=== PATIENT | male | born 1995 | race African-American/Black ===

== ENCOUNTER 2021-03-15 11:16 | Emergency (ER) | payer SELFPAY ==
[~2021-03-15] VITALS: Ht 180.3 cm; Wt 90.7 kg
[2021-03-15 11:26] VITALS: BP 116/86
--- NOTE | 2021-03-15 11:29 | NUR ---
PT TO WAIT IN LOBBY.
--- NOTE | 2021-03-15 11:42 | NUR ---
DR. MIRANDA WITH PT IN [facility] FOR FURTHER EVALUATION.
[2021-03-15] MEDS ORDERED: NAPR-54 PO (12:32)
[2021-03-15] MEDS ORDERED: METH-1681 PO (12:32)
--- NOTE | 2021-03-15 12:35 | NUR ---
Patient discharged with v/s stable. Written and verbal after care instructions given and explained. Patient alert, oriented and verbalized understanding of instructions. Ambulatory with steady gait. All questions addressed prior to discharge. ID band removed. Patient advised to follow up with PMD. Rx of Naproxen and Robaxin given. Patient educated on indication of medication including possible reaction and side effects. Opportunity to ask questions provided and answered.
== END 2021-03-15 12:35 | disposition home or self-care (01) ==
LOC: MED 11:16
DX: S39.012A Strain of muscle, fascia and tendon of lower back, initial encounter (principal); Z79.899 Other long term (current) drug therapy; X58.XXXA Exposure to other specified factors, initial encounter; Y93.67 Activity, basketball; Y92.89 Other specified places as the place of occurrence of the external cause; Y99.8 Other external cause status
CPT/HCPCS: 72100; 99283